=== PATIENT | male | born 1960 ===

== ENCOUNTER 2016-08-03 18:13 | Emergency (ER) | payer SELFPAY ==
[~2016-08-03] VITALS: Ht 160 cm; Wt 72.7 kg
[2016-08-03 21:24] VITALS: BP 147/90
== END 2016-08-03 21:30 | disposition home or self-care (01) ==
LOC: EMS 18:15
DX: S40.012A Contusion of left shoulder, initial encounter (principal); F17.210 Nicotine dependence, cigarettes, uncomplicated; V49.50XA Passenger injured in collision with unspecified motor vehicles in traffic accident, initial encounter; Y93.89 Activity, other specified; Y92.89 Other specified places as the place of occurrence of the external cause; Y99.8 Other external cause status
CPT/HCPCS: 99284